=== PATIENT | male | born 1960 ===

== ENCOUNTER 2016-10-04 20:15 | Inpatient (IN) ==
--- NOTE | 2016-10-04 21:04 | Emergency Department Note ---
Alia Tsang Hilary, am scribing for, and in the presence of, Raj Vasquez MD 20:52. Christina Tsang Charles R, MD, personally performed the services described in this documentation, ascribed by Carlene Rojo in my presence, and it is both accurate and complete . Arrival - Arrival Chief Complaint: Dizziness Stated Complaint: Dizziness ED Nursing Triage Note: Patient is a transfer from [facility] for further evaluation of dizziness and weakness due to low blood pressure. Nurse reports that patient was started on lisinopril yesterday and has end stage renal disease. Patient was given 2L of normal saline and 5 units of insulin IV for blood sugar of 513. Patient denies dizziness/pain upon triage. Blood pressure 97/66, EMS reports that blood sugar was 306 just prior to arrival. Hx of HTN, DM, ESRD, alcoholic liver disease, high cholesterol and neuropathy. Mode of Arrival: Stretcher Limitations: No Limitations Source: Patient, RN Notes Reviewed Time Seen by Provider: 10/04/16 20:35 - History of Present Illness HPI Narrative: Pt is a 56 y/o male brought into the ED via EMS as a transfer from [facility] for further evaluation of dizziness and weakness. Pt states he was at the [facility] getting release papers when he almost passed out. When asked pt is unaware of his renal disease diagnosis or neuropathy and states he was told his blood sugar was low. Pt denies chest pain, dizziness or SOB and states his last drink was a month ago. Nurse reports that patient was started on Lisinopril yesterday and has end stage renal disease. Patient was given 2L of normal saline and 5 units of insulin IV for blood sugar of 513. Blood pressure 97/66, EMS reports that blood sugar was 306 just prior to arrival. Hx of HTN, DM, ESRD, alcoholic liver disease, high cholesterol and neuropathy. No other complaints or problems stated in the ED. Onset (ago): hour(s) Consistency: now resolved Severity: mild Severity scale (1-10): 1 Allergies/Adverse Reactions: Allergies Allergy/AdvReac Type Severity Reaction Status Date / Time No Known Allergies Allergy Unverified 07/24/15 04:19 Home Medications: Home Medications Medication Instructions Recorded Confirmed Type Aspirin [Ecotrin] 81 mg PO DAILY 07/26/15 07/26/15 History Lisinopril 10 mg PO DAILY 07/26/15 07/26/15 History Simvastatin [Zocor] 20 mg PO DAILY 07/26/15 07/26/15 History glipiZIDE [Glipizide] 1 tablet PO BID 07/26/15 07/26/15 History Ciprofloxacin Tab [Cipro Tab] 500 mg PO BID #14 tablet 07/27/15 Rx HYDROcodone/ACETAMIN 7.5-325 1 tablet PO Q4H PRN #30 tablet 07/27/15 Rx [[place] 7.5-325] Insulin Glargine [Lantus] 50 unit SUBCUT BID injection 07/27/15 Rx metroNIDAZOLE TAB [Flagyl Cap/Tab] 500 mg PO TID #21 tablet 07/27/15 Rx Review of System - Review of System 12 point system: reviewed and no additional remarkable complaints except as stated - Review of System Constitutional: Absent: fever Respiratory: Absent: respiratory distress (SOB) Cardiovascular: Absent: chest pain, syncope Neurological: Absent: weakness Medical,Surgical,& Family Hx - Medical History Cardio: History of: Hypertension Endocrine: History of: Diabetes Mellitus (IDDM), Dyslipidemia Gastrointestinal: History of: Liver Problems (alcoholic liver disease) Other: History of: Miscellaneous Medical Problems (neuropathy) - Social History Smoking Status: Unknown if ever smoked Frequency of Alcohol Use: Frequently Type of Drug Use: None Exam Vital Signs: Vital Signs Temperature 97.6 F 10/04/16 20:15 Pulse Rate 96 H 10/04/16 21:05 Respiratory Rate 19 10/04/16 20:15 Blood Pressure 76/53 10/04/16 21:05 O2 Sat by Pulse Oximetry 99 10/04/16 20:15 - General General appearance: alert, in no apparent distress - Head Head exam: Present: atraumatic, normocephalic - Eye Eye exam: Present: normal appearance, PERRL, EOMI - ENT ENT exam: Present: mucous membranes moist, TM's normal bilaterally, other ( Edentulous). Absent: mucous membranes dry - Neck Neck exam: Present: full ROM, trachea midline. Absent: tenderness - Chest Chest inspection: Present: symmetric chest wall rise, other (spider hemangioma across chest and shoulders noted). Absent: tenderness - Respiratory Respiratory exam: Present: normal lung sounds bilaterally. Absent: respiratory distress - Cardiovascular Cardiovascular exam: Present: regular rate, normal rhythm, normal heart sounds. Absent: murmur, rubs, gallop - Abdominal Exam Abdominal exam: Present: soft, normal bowel sounds. Absent: distention, tenderness - Extremities Exam Extremities exam: Present: full ROM. Absent: tenderness - Back Exam Back exam: Present: full ROM. Absent: tenderness - Neurological Exam Neurological exam: Present: alert, oriented X3, CN II-XII intact. Absent: motor sensory deficit - Psychiatric Psychiatric exam: Present: normal affect, normal mood - Skin Skin exam: Present: warm, dry, intact, normal color. Absent: rash - Other Other exam information: Orthostatic positive Course - Consultations Consultation #1: Hospitalist will admit patient Time: 21:27 Results - Labs Lab Results: I have reviewed the patients labs Labs: All the labs from the previous facility were reviewed Disposition Clinical Impression: Benign paroxysmal positional vertigo, Orthostatic hypotension, Acute renal failure, Hyperglycemia Case discussed with: patient Disposition: Still a Patient Condition: Stable Time of Disposition: 21:27
--- NOTE | 2016-10-04 22:25 | Hospitalist History & Physical ---
Assessment and Plan (1) Orthostatic hypotension Status: Acute Assessment and plan: most likely combination of blood pressure meds and dehydration to r/o infection. Plan Admit to the unit Continue with aggressive IV hydration Hold bp meds Will use pressors if need be Blood cultures, UA, UC CBC, CMP cardiac enzymes, D-dimer Current Visit: Yes (2) Uncontrolled diabetes mellitus Status: Acute Assessment and plan: continue with Insulin therapy, hydration DM teaching HbA1c level Current Visit: No Qualifiers: Diabetes mellitus type: type 2 (3) Acute renal failure Status: Acute Assessment and plan: continue with IVF, avoid nephrotoxics BMP in am Current Visit: Yes (4) Dyslipidemia Status: Acute Assessment and plan: Resume home meds Current Visit: Yes History of Present Illness Chief complaint: elevated blood sugar, weakness, dizziness History of present illness: Mr. Dc is a 56 year old male with a history of DM, HTN, Hyperlipidemia, Neuropathy, alcoholic liver disease who was transferred from [facility] for evaluation of dizziness, weakness, and hypotension.Patient was started on Lisinopril yesterday for HTN. Today, he checked his blood sugar at home and it was high so he went to the ER. During his evaluation at [facility], he became very weak, dizzy and almost passed out.His blood pressure was in the 70s/40s, he was orthostatic,and his blood sugar was found to 513.His creatinine was elevated at 3.3. He was lightheaded, having occasional chest pain but no nausea, vomiting, fever, chills or rigor. No SOB and palpitations. He was started on IVF boluses, Insulin and transferred here for further care.Upon arrival here, his blood pressure was in the 80s-90s/40s-60s despite IVF but his blood sugar had improved to 306. Home Medications Medication Instructions Recorded Confirmed Type Aspirin [Ecotrin] 81 mg PO DAILY 07/26/15 07/26/15 History Lisinopril 10 mg PO DAILY 07/26/15 07/26/15 History Simvastatin [Zocor] 20 mg PO DAILY 07/26/15 07/26/15 History glipiZIDE [Glipizide] 1 tablet PO BID 07/26/15 07/26/15 History Ciprofloxacin Tab [Cipro Tab] 500 mg PO BID #14 tablet 07/27/15 Rx HYDROcodone/ACETAMIN 7.5-325 1 tablet PO Q4H PRN #30 tablet 07/27/15 Rx [[place] 7.5-325] Insulin Glargine [Lantus] 50 unit SUBCUT BID injection 07/27/15 Rx metroNIDAZOLE TAB [Flagyl Cap/Tab] 500 mg PO TID #21 tablet 07/27/15 Rx Allergies Allergy/AdvReac Type Severity Reaction Status Date / Time No Known Allergies Allergy Unverified 07/24/15 04:19 Medical,Surgical,& Family Hx - Medical History Cardio: History of: Hypertension Endocrine: History of: Diabetes Mellitus (IDDM), Dyslipidemia Gastrointestinal: History of: Liver Problems (alcoholic liver disease) Other: History of: Miscellaneous Medical Problems (neuropathy) - Social History Smoking Status: Unknown if ever smoked Frequency of Alcohol Use: Frequently Type of Drug Use: None 12 point system: reviewed and no additional remarkable complaints except as stated Exam - Constitutional Vitals: Period Temp Pulse Resp BP Sys/Argueta Pulse Ox Last 24 Hr 97.6 F-97.6 F 74-105 19-20 73-109/49-66 99-100 General appearance: no acute distress - Head Head exam: Present: normal inspection - Respiratory Respiratory exam: Present: clear to auscultation bilaterally - Cardiovascular Cardiovascular exam: Present: regular rate and rhythm - GI/Abdominal GI/Abdominal exam: Present: normal bowel sounds - Extremities Exam Extremities exam: Present: normal inspection - Neurological Exam Neurological exam: Present: alert, oriented X3 Results - Labs Lab Results: I have reviewed the past 24 hour labs
[2016-10-04] MEDS ORDERED: GLUCAGON 1 MG VIAL IM PRN ×2 (23:14)
[2016-10-04] MEDS ORDERED: ONDANSETRON 4 MG/2 ML VIAL IV PRN (23:14)
[2016-10-04] MEDS ORDERED: DEXTROSE 50% 25 GM/50 ML VIAL IV PRN ×2 (23:14)
[2016-10-04] MEDS ORDERED: ACETAMINOPHEN 325 MG TABLET PO PRN (23:14)
[2016-10-04] MEDS: SODIUM CHLORIDE 0.9% 1,000 ML IV SCH (23:29)
[2016-10-04] MEDS: ENOXAPARIN 30 MG/0.3 ML SYRINGE SUBCUT SCH (23:45)
[2016-10-04] MEDS: INSULIN REGULAR 100 UNIT/ML SUBCUT SCH (23:46)
[2016-10-05 00:56] LABS: Troponin I Only 0.633 NG/ML (0.00-0.045)
[2016-10-05 01:02] LABS: Risk Ratio 3.45; Thyroid Stimulating Hormone 1.59 uIU/ml (0.358-3.74)
[2016-10-05 04:50] LABS: Basophils % 0.4 % (0.0-0.8); Eosinophils # 0.2 10*3/uL (0.0-0.87); Eosinophils % 2.2 % (0.00-10.9); Hematocrit 38.3 VOL% (42.0-52.0); Hemoglobin 13.4 GM/DL (14.0-18.0); Immature Granulocytes % 0.5 %; Immature Granulocytes Absolute 0.04 #; Lymphocytes # 3.1 10*3/uL (1.4-4.0); Lymphocytes % 38.4 % (21.2-54.2); Mean Corpuscular Hemoglobin 32 PG (27-34); Mean Corpuscular Volume 91.4 FL (87-102); Mean Platelet Volume 10.6 FL (9.6-12.0); Monocytes # 0.9 10*3/uL (0.11-0.8); Monocytes % 10.6 % (1.7-12.7); Neutrophils # 3.9 10*3/uL (1.4-7.4); Neutrophils % 47.9 % (38.7-73.9); Platelet Count 177 T/CUMM (130-400); Red Blood Count 4.19 MC/CUMM (3.8-5.5); Red Cell Distribution Width 13.2 % (9.3-17.3); White Blood Count 8.1 T/CUMM (4-12)
[2016-10-05 05:34] LABS: Troponin I Only 0.772 NG/ML (0.00-0.045)
[2016-10-05 05:51] LABS: Albumin 3.1 G/DL (3.4-5.0); Calcium 8.1 MG/DL (8.5-10.1); Osmolality,Calculated 279.8 MOS/KG (273-304); Potassium 3.2 MMOL/L (3.5-5.1)
[2016-10-05] MEDS: INSULIN REGULAR 100 UNIT/ML SUBCUT SCH ×4 (06:11→21:51)
[2016-10-05] MEDS: SODIUM CHLORIDE 0.9% 1,000 ML IV SCH ×3 (06:20→22:21)
--- NOTE | 2016-10-05 06:25 | EKG Report ---
Stationary ECG Study [facility] ER Test Date: 10/04/2016 8:56:01 PM Pat Name: ZI CHACON Department: Room: 126 Gender: M Order Clerk: : 1960 Requested by: Raj Baxter Order Number: [id number] Reading MD: MARISSA MURPHY Intervals [place] Rate: 77 P: 77 IN: 154 QRS: -29 QRSD: 106 T: 74 QT: 414 QTc: 446 Interpretive Statements SINUS RHYTHM BORDERLINE LEFT AXIS DEVIATION INCOMPLETE RIGHT BUNDLE BRANCH BLOCK NONSPECIFIC T-WAVE ABNORMALITY Electronically Signed On 10-06-16 12:23:40 CDT by MARISSA MURPHY [email or web address]
[2016-10-05] MEDS ORDERED: DEXTROSE 50% 25 GM/50 ML SYRINGE IV PRN (08:30)
[2016-10-05] MEDS: ASPIRIN EC 81 MG TABLET PO SCH (09:21)
[2016-10-05] MEDS: SIMVASTATIN 20 MG TABLET PO SCH (09:21)
--- NOTE | 2016-10-05 13:56 | Hospitalist Progress Note ---
Hospitalist: Subjective Interval history: Patient was transferred from [facility] for further evaluation of dizziness and weakness due to low blood pressure. Per report patient was started on new medication lisinopril yesterday and subsequently became weak dizzy and presyncopal, and was also slightly hypotensive. Blood sugars were also elevated. Today he denies dizziness but blood pressure remains on the lower side though is improved compared to yesterday. His diabetes appears poorly controlled overall prior to admission as his hemoglobin A1c was 12.6. Also it is unclear at this point whether he had any underlying chronic kidney disease. Exam - Constitutional Vitals: Period Temp Pulse Resp BP Sys/Argueta Pulse Ox Last 24 Hr 97.2 F-98.2 F 67-105 14-22 73-112/49-70 98-100 Exam: General: No Acute Distress HEENT: Normocephalic, atraumatic, Extra ocular movements intact Neck: Supple, No JVD Chest: Clear to auscultation B/L CV: S1 + S2 audible without murmur, gallop or rub Abd: soft, NT, Non-distended, BS + Ext: No edema Skin: No purpura, bruising or rash Rheumatologic: No Joint deformities Neurologic: Strengtg 5/5 all extremities, no gross sensory deficits Results - Labs CBC & BMP: 10/05/16 04:15 10/05/16 04:15 - Impressions (1) Hypotension Status: Acute Current Visit: Yes Assessment and plan: Most likely from lisinopril and exacerbated by dehydration, continue IV fluids (2) Uncontrolled diabetes mellitus Status: Acute Assessment and plan: continue with Insulin therapy, hydration DM teaching HbA1c level was 12.6, per diabetes educators note patient was not compliant with with diabetes medications and diet. Today we will start him on nightly Levemir and pre-meal Humalog 3 times daily and switch him to low-dose sliding scale insulin. Will continue continue to monitor his Accu-Cheks closely and adjust insulin dose as needed Current Visit: No Qualifiers: Diabetes mellitus type: type 2 (3) Acute renal failure Status: Acute . Could have possible underlying chronic kidney disease as well, continue to monitor Assessment and plan: continue with IVF, avoid nephrotoxics BMP in am Current Visit: Yes (4) Dyslipidemia Status: Acute Assessment and plan: Resume home statin Current Visit: Yes (5) Hypokalemia Status: Acute Assessment and plan: Replace as needed (6) Ess HTN Status: chronic Currently he is hypotensive and not needing any blood pressure medications. However if the blood pressure starts going up will avoid ROMAIN romain inhibitors and ARB's. Calcium channel blockers could be a better choice if needed. Quality Measures - Stroke Symptom Onset Unknown: No
[2016-10-05] MEDS ORDERED: DEXTROSE 50% 25 GM/50 ML VIAL IV PRN (14:08)
[2016-10-05] MEDS ORDERED: GLUCAGON 1 MG VIAL IM PRN (14:08)
[2016-10-05] MEDS: POTASSIUM CHLORIDE 20 MEQ TABLET PO PRN ×3 (14:30→18:29)
[2016-10-05] MEDS ORDERED: INSULIN REGULAR 100 UNIT/ML SUBCUT SCH (16:30)
[2016-10-05] MEDS: INSULIN LISPRO 100 UNIT/ML SUBCUT SCH (17:13)
[2016-10-05] MEDS ORDERED: INSULIN GLARGINE 100 UNIT/ML SUBCUT SCH (21:00)
[2016-10-05] MEDS: ENOXAPARIN 30 MG/0.3 ML SYRINGE SUBCUT SCH (22:21)
[2016-10-06 04:47] LABS: Basophils % 0.5 % (0.0-0.8); Eosinophils # 0.2 10*3/uL (0.0-0.87); Eosinophils % 2.2 % (0.00-10.9); Hematocrit 38.4 VOL% (42.0-52.0); Hemoglobin 13.3 GM/DL (14.0-18.0); Immature Granulocytes % 0.3 %; Immature Granulocytes Absolute 0.02 #; Lymphocytes # 3.2 10*3/uL (1.4-4.0); Lymphocytes % 43.5 % (21.2-54.2); Mean Corpuscular HGB Conc 34.6 GM/DL (32-36); Mean Corpuscular Hemoglobin 32 PG (27-34); Mean Corpuscular Volume 93.4 FL (87-102); Mean Platelet Volume 11.2 FL (9.6-12.0); Monocytes # 0.6 10*3/uL (0.11-0.8); Monocytes % 8.3 % (1.7-12.7); Neutrophils # 3.4 10*3/uL (1.4-7.4); Neutrophils % 45.2 % (38.7-73.9); Platelet Count 179 T/CUMM (130-400); Red Blood Count 4.11 MC/CUMM (3.8-5.5); Red Cell Distribution Width 13.5 % (9.3-17.3); White Blood Count 7.4 T/CUMM (4-12)
[2016-10-06 05:29] LABS: Calcium 8.3 MG/DL (8.5-10.1); Osmolality,Calculated 279.5 MOS/KG (273-304); Potassium 3.3 MMOL/L (3.5-5.1)
[2016-10-06] MEDS: SODIUM CHLORIDE 0.9% 1,000 ML IV SCH (06:01)
[2016-10-06] MEDS: INSULIN REGULAR 100 UNIT/ML SUBCUT SCH ×4 (07:16→20:41)
--- NOTE | 2016-10-06 07:48 | Hospitalist Progress Note ---
Assessment and Plan - Time spent with patient Time spent with patient: Less than 30 minutes (1) Hypotension Status: Acute Assessment and plan: Hypotension has now resolved with hydration and discontinuation of his lisinopril. We will transfer to a regular bed at this time and plan for discharge in the a.m. Current Visit: Yes (2) Uncontrolled diabetes mellitus Status: Chronic Assessment and plan: Blood sugars are under better control. Will continue diabetic diet and optimization of his medical therapy while here. Current Visit: No Qualifiers: Diabetes mellitus type: type 2 (3) Hypertension Status: Chronic Assessment and plan: He was initially hypotensive and his medications were withheld. Blood pressures are now stable and will consider initiation of a calcium channel keven prior to discharge. Current Visit: No Qualifiers: Hypertension type: essential hypertension Qualified Code(s): I10 - Essential (primary) hypertension (4) Medical non-compliance Status: Chronic Assessment and plan: Have counseled in regards to compliance with his therapy. Current Visit: No (5) Hypokalemia Status: Acute Assessment and plan: He is mildly hypokalemic and will supplement today with follow-up level in the a.m. Current Visit: No (6) Acute renal failure Status: Acute Assessment and plan: Patient had acute kidney injury on admission which was felt secondary to volume depletion. It is now improved. We will continue hydration and avoidance of ROMAIN inhibitor at this time. Current Visit: Yes Hospitalist: Subjective Interval history: Chart is been reviewed and patient examined. 56-year-old male who was initially admitted with dizziness and weakness secondary to hypotension. Lisinopril has been started on the day prior. He was admitted to the ICU and is now hydrated and his lisinopril is been discontinued. He is asymptomatic and tolerating his diet. Exam - Constitutional Vitals: Period Temp Pulse Resp BP Sys/Argueta Pulse Ox Last 24 Hr 96.7 F-98.5 F 57-86 12-24 83-169/56-96 94-100 General appearance: no acute distress - Head Head exam: Present: normocephalic, atraumatic - Eye Eye exam: Present: EOMI Pupils: Present: JOVAN - ENT ENT exam: Present: normal exam - Neck Neck exam: Present: normal inspection - Respiratory Respiratory exam: Present: clear to auscultation bilaterally - Cardiovascular Cardiovascular exam: Present: regular rate and rhythm. Absent: systolic murmur - GI/Abdominal GI/Abdominal exam: Present: normal bowel sounds, soft. Absent: mass, tenderness , rebound - Extremities Exam Extremities exam: Absent: calf tenderness, edema - Back Exam Back exam: Present: normal inspection - Neurological Exam Neurological exam: Present: alert, oriented X3, CN II-XII intact. Absent: motor sensory deficit - Psychiatric Psychiatric exam: Present: normal affect, normal mood. Absent: agitated, anxious - Skin Skin exam: Present: warm, dry. Absent: erythema, rash Results - Labs CBC & BMP: 10/06/16 04:23 10/06/16 04:23 Lab Results: I have reviewed the past 24 hour labs Quality Measures - Stroke Symptom Onset Unknown: No
[2016-10-06] MEDS: SIMVASTATIN 20 MG TABLET PO SCH (08:26)
[2016-10-06] MEDS: amLODIPine 5 MG TABLET PO SCH (08:26)
[2016-10-06] MEDS: ASPIRIN EC 81 MG TABLET PO SCH (08:26)
[2016-10-06] MEDS: INSULIN LISPRO 100 UNIT/ML SUBCUT SCH ×4 (08:26→17:14)
[2016-10-06] MEDS: POTASSIUM CHLORIDE 20 MEQ TABLET PO PRN (08:27)
[2016-10-06] MEDS: FENOFIBRATE 145 MG TABLET PO SCH (13:04)
[2016-10-06] MEDS ORDERED: POTASSIUM CHLORIDE 20 MEQ TABLET PO ONE (17:00)
[2016-10-06] MEDS ORDERED: INSULIN GLARGINE 100 UNIT/ML SUBCUT SCH (21:00)
[2016-10-07] MEDS: ENOXAPARIN 30 MG/0.3 ML SYRINGE SUBCUT SCH (01:05)
[2016-10-07 06:22] LABS: Osmolality,Calculated 278.4 MOS/KG (273-304); Potassium 3.8 MMOL/L (3.5-5.1)
[2016-10-07 08:19] VITALS: BP 134/64
--- NOTE | 2016-10-07 08:33 | Discharge Summary ---
Hospital Course - Hospital Course Hospital Course: Mr. Dc is a 56-year-old male with history of diabetes mellitus, hypertension , hyperlipidemia, diabetic neuropathy, alcoholic liver disease who was transferred from [facility] for evaluation of dizziness, weakness and hypotension. He had been started on lisinopril on the day prior for his hypertension. Blood sugar was checked and it was high as well. He was noted to have a systolic blood pressure in the 70s and was orthostatic and blood sugar was noted to be 513 with an elevated creatinine at 3.3 at the time of transfer. He was given IV bolus and insulin and transferred to [place]. He received IV fluids with improvement in his blood pressure. He was felt this was likely secondary to lisinopril in the presence of dehydration. Diabetic teaching was ordered and insulin therapy was reinitiated. Hemoglobin A1c level was 12.6. Patient has been noncompliant and he was started on his routine basal bolus Levemir and Humalog with fair control. He had acute renal failure during his stay with improvement in his creatinine to 0.6 at the time of discharge. He was initiated on Norvasc orally for blood pressure and at the time of discharge blood pressure was 134/64 and he was asymptomatic. Note with compliance of diet and basal bolus insulin therapy while here his blood sugars range between 87 and 210. It is felt that he had reached maximal benefit from hospital stay and can be discharged home with continued outpatient care and follow-up. - Time spent with patient Time with patient DS: Less than 30 minutes Diagnosis - Discharge Diagnosis (1) Hypotension Status: Resolved (2) Uncontrolled diabetes mellitus Status: Chronic (3) Hypertension Status: Chronic (4) Medical non-compliance Status: Chronic (5) Hypokalemia Status: Resolved (6) Acute renal failure Status: Resolved Discharge Plan - Discharge Data Disposition: Disch To Home/Self Care Condition at Discharge: Stable Discharge Diet: diabetic diet Activity: resume usual activities as tolerated Contact your physician if you experience:: fever over 101, Nausea/Vomiting, Shortness of breath - Discharge Medications New amLODIPine [Norvasc] 5 mg PO DAILY #30 tablet Simvastatin [Zocor] 20 mg PO DAILY tablet Continue Aspirin [Ecotrin] 81 mg PO DAILY Insulin Aspart [NovoLOG FlexPen] 10 unit SUBCUT TID W/MEALS #90 Insulin Detemir [Levemir FlexPen] 20 unit SUBCUT BEDTIME #30 Fenofibrate [Tricor] 145 mg PO DAILY Discontinued Lisinopril 40 mg PO DAILY - Follow Up or Referral Follow Up: [facility] [Other] - 3 Days - Forms/Instructions Exam - Constitutional Vitals: Period Temp Pulse Resp BP Sys/Argueta Pulse Ox Last 24 Hr 96.8 F-98.3 F 61-90 13-20 106-134/64-84 96-100 General appearance: no acute distress - Head Head exam: Present: normocephalic, atraumatic - Eye Eye exam: Present: EOMI Pupils: Present: JOVAN - ENT ENT exam: Present: normal exam - Neck Neck exam: Present: normal inspection - Respiratory Respiratory exam: Present: clear to auscultation bilaterally. Absent: rales, rhonchi, wheezes - Cardiovascular Cardiovascular exam: Present: regular rate and rhythm. Absent: systolic murmur , tachycardia - GI/Abdominal GI/Abdominal exam: Present: normal bowel sounds, soft. Absent: mass, tenderness , rebound - Extremities Exam Extremities exam: Absent: calf tenderness, edema - Back Exam Back exam: Present: normal inspection - Neurological Exam Neurological exam: Present: alert, oriented X3, CN II-XII intact. Absent: motor sensory deficit - Psychiatric Psychiatric exam: Present: normal affect, normal mood. Absent: agitated, anxious - Skin Skin exam: Present: warm, dry. Absent: erythema Discharge Results Procedures and tests throughout hospitalization: Pending Orders 10/04/16 05:10 Urine Culture Stat 10/04/16 23:14 Blood Culture Stat Labs on day of discharge: Labs from last 24 hours 10/07/16 10/07/16 10/06/16 05:08 03:14 20:24 Sodium 140 Potassium 3.8 Chloride 104 Carbon Dioxide 29 Anion Gap 10.8 BUN 14 Creatinine 0.60 L GFR Calculation 117 BUN/Creatinine Ratio 23.00 H Glucose 84 POC Glucose 87 208 H Calculated Osmolality 278.4 Calcium 9.0 10/06/16 10/06/16 17:11 11:28 Sodium Potassium Chloride Carbon Dioxide Anion Gap BUN Creatinine GFR Calculation BUN/Creatinine Ratio Glucose POC Glucose 210 H 138 H Calculated Osmolality Calcium Preliminary micro results at discharge 10/04/16 05:10 Urine Culture - Preliminary Urine,Voided No Growth at 24 hours. 10/05/16 00:17 Blood Culture - Preliminary Blood No growth at 1 day 10/05/16 00:17 Blood Culture - Preliminary Blood No growth at 1 day DS: Provider Date of admission: 10/04/16 22:29 Primary care physician: Shara Kellogg MD Attending physician on admission: Belen Martin MD Consults: 10/04/16 23:14 Consult to [facility], Educator [CONS] Routine Reason for Division Operations Specialist: Diabetes Education 10/04/16 23:37 Consult to Dietitian [CONS] Routine Reason for Dietitian: Diet Recommendations Discharging clinician: Brad Nevarez Expected date of discharge: 10/07/16
[2016-10-07] MEDS: ASPIRIN EC 81 MG TABLET PO SCH (09:37)
[2016-10-07] MEDS: SIMVASTATIN 20 MG TABLET PO SCH (09:37)
[2016-10-07] MEDS: FENOFIBRATE 145 MG TABLET PO SCH (09:37)
[2016-10-07] MEDS: amLODIPine 5 MG TABLET PO SCH (09:37)
[2016-10-07] MEDS: INSULIN LISPRO 100 UNIT/ML SUBCUT SCH (09:38)
== END 2016-10-07 11:47 | disposition home or self-care (01) | DRG 638 ==
LOC: EDUNIT# → N.ED 20:15 → SUATTDRO 22:29 → N.EDINP 22:29 → N.CC 23:11 → N.TELEN 10-06 10:01
PROVIDERS: ADMIT Internal Medicine; ATTEND Hospitalist

== ENCOUNTER 2020-07-05 05:46 | Inpatient (IN) ==
[2020-06-30 12:29] LABS: Calcium 8.2 MG/DL (8.5-10.1); Osmolality,Calculated 251.9 MOS/KG (273-304)
[2020-06-30 12:38] LABS: Basophils # 0.1 10*3/uL (0.0-0.2); Basophils % 0.6 % (0.0-0.8); Eosinophils # 0.3 10*3/uL (0.0-0.87); Eosinophils % 2.3 % (0.00-10.9); Hematocrit 37.3 VOL% (42.0-52.0); Hemoglobin 13.3 GM/DL (14.0-18.0); Immature Granulocytes % 0.6 %; Immature Granulocytes Absolute 0.06 #; Lymphocytes % 18.1 % (21.2-54.2); Mean Corpuscular HGB Conc 35.7 GM/DL (32-36); Mean Corpuscular Volume 86.5 FL (87-102); Mean Platelet Volume 9.5 FL (9.6-12.0); Monocytes % 6.4 % (1.7-12.7); Platelet Count 316 T/CUMM (130-400); Red Blood Count 4.31 MC/CUMM (3.8-5.5); White Blood Count 10.9 T/CUMM (4-12)
[2020-07-05] MEDS ORDERED: MIDAZOLAM 2 MG/2 ML VIAL ONE (06:28)
[2020-07-05] MEDS ORDERED: LIDOCAINE 2% 5 ML VIAL ONE (06:28)
[2020-07-05] MEDS ORDERED: propofoL 200 MG/20 ML VIAL IV ONE ×2 (06:28→06:30)
[2020-07-05] MEDS ORDERED: fentaNYL 100 MCG/2 ML VIAL ONE (06:28)
[2020-07-05] MEDS ORDERED: SODIUM CHLORIDE 0.9% 100 ML IV ONE (06:30)
[2020-07-05] MEDS ORDERED: LIDOCAINE 1% 20 ML VIAL ONE (06:32)
[2020-07-05] MEDS ORDERED: SODIUM CHLORIDE 0.9% 1,000 ML IV SCH (07:00)
[2020-07-05] MEDS ORDERED: HYDROmorphone 2 MG/1 ML VIAL IV PRN ×2 (10:00)
[2020-07-05] MEDS ORDERED: KETOROLAC 15 MG/1 ML VIAL IV PRN (10:00)
[2020-07-05] MEDS ORDERED: BISACODYL 5 MG TABLET PO PRN (10:00)
[2020-07-05] MEDS ORDERED: ONDANSETRON 4 MG/2 ML VIAL IV PRN (10:00)
[2020-07-05] MEDS ORDERED: GLUCAGON 1 MG VIAL IM PRN (10:00)
[2020-07-05] MEDS ORDERED: ALBUTEROL/IPRATROPIUM 3 ML NEB RESP TX PRN (10:00)
[2020-07-05] MEDS ORDERED: ACETAMINOPHEN 325 MG TABLET PO PRN (10:00)
[2020-07-05] MEDS ORDERED: DEXTROSE 50% 25 GM/50 ML VIAL IV PRN (10:00)
[2020-07-05] MEDS: SODIUM CHLORIDE 0.9% 1,000 ML IV SCH ×2 (10:21→18:45)
[2020-07-05] MEDS ORDERED: LORazepam 2 MG/1 ML VIAL IV PRN (11:54)
[2020-07-05] MEDS ORDERED: [UNRECOGNIZED DRUG - OTHER] SUBCUT SCH (12:00)
[2020-07-05] MEDS ORDERED: INSULIN ASPART U 100 UNIT/ML SUBCUT SCH (12:00)
[2020-07-05] MEDS: INSULIN LISPRO 100 UNIT/ML SUBCUT SCH ×3 (12:41→20:25)
[2020-07-05 14:01] LABS: Bacteria,Urine Occasional /HPF (Few); Bilirubin,Urine Negative (Negative); Blood, Urine Small mg/dL (Negative); Glucose,Urine (UA) >=500 mg/dL (Negative); Ketones,Urine Negative (Negative); Nitrite,Urine Negative (Negative); Protein,Urine >=500 MG/DL; RBC,Urine 8 /HPF (0-4); Squamous Epithelial Cell,Urine Occasional /HPF (0-10); Urine Appearance CLOUDY (Clear); Urine Color Yellow (Yellow); Urine Specific Gravity 1.003 (1.001-1.035); Urine Urobilinogen < 2.0 EU/DL (0.2-1.0); WBC,Urine 261 /HPF (0-6)
[2020-07-05] MEDS ORDERED: cefTRIAXone 1,000 MG in SODIUM CHLORIDE 0.9% 100 ML IV SCH (16:30)
[2020-07-05] MEDS: DOXYCYCLINE HYCLATE 100 MG CAPSULE PO SCH (17:18)
[2020-07-05] MEDS: lisinopriL 10 MG TABLET PO SCH (20:24)
[2020-07-05] MEDS ORDERED: SIMVASTATIN 10 MG TABLET PO SCH (21:00)
[2020-07-05] MEDS ORDERED: [UNRECOGNIZED DRUG - OTHER] SUBCUT SCH (21:00)
[2020-07-05] MEDS ORDERED: INSULIN DETEMIR U SUBCUT SCH (21:00)
[2020-07-05] MEDS ORDERED: amLODIPine 10 MG TABLET PO SCH (21:00)
[2020-07-06] MEDS: SODIUM CHLORIDE 0.9% 1,000 ML IV SCH (02:21)
[2020-07-06 03:47] LABS: Basophils # 0.1 10*3/uL (0.0-0.2); Basophils % 1.1 % (0.0-0.8); Eosinophils # 0.2 10*3/uL (0.0-0.87); Eosinophils % 2.4 % (0.00-10.9); Hematocrit 35.7 VOL% (42.0-52.0); Hemoglobin 12.5 GM/DL (14.0-18.0); Immature Granulocytes % 0.3 %; Immature Granulocytes Absolute 0.02 #; Lymphocytes # 1.7 10*3/uL (1.4-4.0); Lymphocytes % 25.5 % (21.2-54.2); Mean Corpuscular Volume 89.3 FL (87-102); Mean Platelet Volume 9.3 FL (9.6-12.0); Monocytes % 9.8 % (1.7-12.7); Neutrophils % 60.9 % (38.7-73.9); Platelet Count 325 T/CUMM (130-400); Red Cell Distribution Width 13.7 % (9.3-17.3); White Blood Count 6.7 T/CUMM (4-12)
[2020-07-06 04:22] LABS: Calcium 8.2 MG/DL (8.5-10.1); Osmolality,Calculated 270.2 MOS/KG (273-304); Potassium 3.5 MMOL/L (3.5-5.1)
[2020-07-06] MEDS ORDERED: fentaNYL 100 MCG/2 ML VIAL ONE (07:07)
[2020-07-06] MEDS ORDERED: ONDANSETRON 4 MG/2 ML VIAL ONE (07:38)
[2020-07-06] MEDS ORDERED: propofoL 200 MG/20 ML VIAL IV ONE (07:38)
[2020-07-06] MEDS ORDERED: LIDOCAINE 2% 5 ML VIAL ONE (07:38)
[2020-07-06] MEDS ORDERED: SEVOFLURANE 1 UNIT/15 MINUTE INH ONE (07:38)
[2020-07-06] MEDS ORDERED: ERGOCALCIFEROL 50,000 UNIT CAPSULE PO SCH (09:00)
[2020-07-06] MEDS ORDERED: MULTIVITAMIN (CENTRUM) TABLET PO SCH (09:00)
[2020-07-06] MEDS ORDERED: MAGNESIUM SULF RIDER 2 GM/50 ML PREMIX IV ONE (09:00)
[2020-07-06] MEDS ORDERED: FOLIC ACID 1 MG TABLET PO SCH (09:00)
[2020-07-06] MEDS ORDERED: DOCUSATE/SENNA 50-8.6 MG TABLET PO SCH (09:00)
[2020-07-06] MEDS ORDERED: PANTOPRAZOLE 40 MG TABLET PO SCH (09:00)
[2020-07-06] MEDS ORDERED: NON-FORMULARY MEDICATION (Multivitamin With Iron Tablet) PO SCH (09:00)
[2020-07-06] MEDS ORDERED: THIAMINE 100 MG TABLET PO SCH (09:00)
[2020-07-06] MEDS: lisinopriL 10 MG TABLET PO SCH (09:53)
[2020-07-06] MEDS: DOXYCYCLINE HYCLATE 100 MG CAPSULE PO SCH (09:53)
[2020-07-06] MEDS: INSULIN LISPRO 100 UNIT/ML SUBCUT SCH ×2 (09:54→11:19)
[2020-07-06] MEDS ORDERED: DEXTROSE 50% 25 GM/50 ML VIAL IV PRN (11:16)
[2020-07-06 16:03] VITALS: BP 120/75
== END 2020-07-06 17:39 | disposition home or self-care (01) | DRG 314 ==
LOC: N.OR 05:46 → N.SDSINP 05:49 → N.3E 13:46
PROVIDERS: ADMIT Surgery; ATTEND Surgery